=== PATIENT | female | born 1995 | race Caucasian/White ===

== ENCOUNTER 2016-07-16 15:17 | Emergency (ER) | payer OTHER ==
[2016-07-16 16:07] VITALS: BP 118/86
--- NOTE | 2016-07-16 16:22 | UC ---
Respiratory Complaint HPI - HPI Summary HPI Summary: 2 weeks of sinus pain and congestion, no fevers, some cough, slight relief with zyrtec/sidafed - History of Current Complaint Chief Complaint: UCRespiratory Stated Complaint: CHEST CONGESTION,COUGH Time Seen by Provider: 07/16/16 16:21 Hx Obtained From: Patient Hx Last Menstrual Period: 06/18/16 ?: No Onset/Duration: Gradual Onset, Lasting Weeks - 2, Still Present Timing: Constant Severity Initially: Moderate Severity Currently: Moderate Pain Intensity: 5 Pain Scale Used: 0-10 Numeric Character: Cough: Nonproductive Aggravating Factors: Nothing Alleviating Factors: Bronchodilator, OTC Meds Associated Signs And Symptoms: Positive: Wheezing, Edema, URI, Nasal Congestion , Sinus Discomfort - Allergies/Home Medications Allergies/Adverse Reactions: Allergies Allergy/AdvReac Type Severity Reaction Status Date / Time No Known Allergies Allergy Verified 07/16/16 16:07 Home Medications: Home Medications Norgestimate-Ethinyl Estradiol [Twt-Wy-Ftalpy 0.18/0.215/0.25 mg-25 Mcg] 1 tab PO 07/16/16 [History] PMH/Surg Hx/FS Hx/Imm Hx Previously Healthy: No Endocrine History Of: Denies: Diabetes, Thyroid Disease Cardiovascular History Of: Denies: Cardiac Disorders, Hypertension Respiratory History Of: Reports: Asthma - sports induced asthma Denies: COPD GI/ History Of: Denies: Ulcer - Surgical History Surgical History: None - Family History Known Family History: Positive: Cardiac Disease, Hypertension - Social History Occupation: Student Lives: With Family Alcohol Use: Occasionally Substance Use Type: None Smoking Status (MU): Never Smoked Tobacco Review of Systems Constitutional: Negative Skin: Negative Eyes: Negative ENT: Sore Throat, Ear Ache, Nasal Discharge Respiratory: Cough Cardiovascular: Negative Gastrointestinal: Negative Genitourinary: Negative Motor: Negative Neurovascular: Negative Musculoskeletal: Negative Neurological: Headache - maxillary sinus headache Psychological: Negative All Other Systems Reviewed And Are Negative: Yes Physical Exam Triage Information Reviewed: Yes Appearance: Well-Appearing, No Pain Distress, Well-Nourished Vital Signs: Initial Vital Signs Temp 98.1 F 07/16/16 16:02 Pulse 64 07/16/16 16:02 Resp 18 07/16/16 16:02 BP 118/86 07/16/16 16:02 Pulse Ox 99 07/16/16 16:02 Vital Signs Reviewed: Yes Eye Exam: Normal Eyes: Positive: Conjunctiva Clear ENT Exam: Normal ENT: Positive: Normal ENT inspection, Hearing grossly normal, Pharynx normal, Nasal congestion, Nasal drainage, TMs normal. Negative: Tonsillar swelling, Tonsillar exudate, Trismus, Muffled/hoarse voice Dental Exam: Normal Neck exam: Normal Neck: Positive: Supple, Nontender, No Lymphadenopathy Respiratory Exam: Normal Respiratory: Positive: Chest non-tender, No respiratory distress, No accessory muscle use, Wheezing Cardiovascular Exam: Normal Cardiovascular: Positive: RRR, No Murmur, Pulses Normal, Brisk Capillary Refill Musculoskeletal Exam: Normal Musculoskeletal: Positive: Strength Intact, ROM Intact, No Edema Neurological Exam: Normal Neurological: Positive: Alert, Muscle Tone Normal Psychological Exam: Normal Skin Exam: Normal UC Diagnostic Evaluation - Laboratory O2 Sat by Pulse Oximetry: 99 Respiratory Course/Dx - Course Course Of Treatment: Flonase, albuterol augmentin, increase fluids, mucinx d follow at [facility] - Differential Dx/Diagnosis Differential Diagnosis/HQI/PQRI: Asthma, Bronchitis, Laryngitis, Lower Resp Infection, Sinusitis Provider Diagnoses: Acute rhinosinusitis Discharge - Discharge Plan Condition: Stable Disposition: HOME Prescriptions: Albuterol HFA INHALER* [Ventolin HFA Inhaler*] 2 puff INH Q4H PRN #1 mdi PRN Reason: cough/wheeze/chest congestion Amoxicillin/Clavulanate TAB* [Augmentin TAB 875*] 875 mg PO BID #20 tab Fluticasone NASAL SPRAY 50MCG* [Flonase NASAL SPRAY 50MCG*] 2 spray BOTH NARES DAILY #1 btl Patient Education Materials: How to Use a Metered-Dose Inhaler (ED), How to Use Nasal [place] (ED), Sinusitis (ED), Bronchospasm (ED) Referrals: [facility] CESILIA Muller [Primary Care Provider] - If Needed
== END 2016-07-16 16:42 | disposition home or self-care (01) ==
LOC: UCEAST 15:17
DX: J01.90 Acute sinusitis, unspecified (principal); J45.990 Exercise induced bronchospasm
CPT/HCPCS: 99202; G0463

== ENCOUNTER 2016-12-06 16:51 | Emergency (ER) | payer OTHER ==
[2016-12-06 17:22] VITALS: BP 118/72
--- NOTE | 2016-12-06 18:23 | ED ---
Respiratory - HPI Summary HPI Summary: 21 y/o female presents to urgent care c/o sinus congestions, sore throat with difficulty swallowing and SINGH for the past 4 days. She feel SOB w/ mild wheezing and subjective fever at home. She has been taking DayQuil, sudafed, NyQuil, and Albuterol inhaler w/o any improvement of symptoms. Pt denies dizziness, chest pain, abdominal pain, N/V/D. - History of Current Complaint Chief Complaint: UCRespiratory Stated Complaint: URI Time Seen by Provider: 12/06/16 18:18 Hx Obtained From: Patient Onset/Duration: Gradual Onset, Lasting Days, Still Present Timing: Constant Initial Severity: Mild Current Severity: Moderate Pain Intensity: 6 Character: Cough (Nonproductive), Dyspnea on Exertion Aggravating Factor(s): URI Alleviating Factor(s): Nothing Associated Signs and Symptoms: Fever, Wheezing - mild at home, Nasal Congestion , Dyspnea - Risk Factors Status Asthmaticus Risk Factors: Negative Pulmonary Embolism Risk Factors: Negative Cardiac Risk Factors: Negative Pseudomonas Risk Factors: Negative Tuberculosis Risk Factors: Negative - Allergy/Home Medications Allergies/Adverse Reactions: Allergies Allergy/AdvReac Type Severity Reaction Status Date / Time No Known Allergies Allergy Verified 12/06/16 17:22 Home Medications: Home Medications [id number] [Vicks Dayquil/Nyquil Cold] 1 mis PO ONCE PRN 03/12 [History Confirmed 12/06/16] PMH/Surg Hx/FS Hx/Imm Hx Previously Healthy: Yes Endocrine/Hematology History: Denies: Hx Diabetes, Hx Thyroid Disease Cardiovascular History: Denies: Hx Hypertension Respiratory History: Reports: Hx Asthma - sports induced asthma Denies: Hx Chronic Obstructive Pulmonary Disease (COPD) GI History: Denies: Hx Ulcer Infectious Disease History: No Infectious Disease History: Denies: Hx Hepatitis, Hx Human Immunodeficiency Virus (HIV), Traveled Outside the [place] in Last 30 Days - Family History Known Family History: Positive: Cardiac Disease, Hypertension - Social History Occupation: Student Lives: Dormitory/Roommates Alcohol Use: Weekly Substance Use Type: Reports: None Smoking Status (MU): Never Smoked Tobacco Review of Systems Positive: Fever - subjective Eyes: Negative Positive: Sore Throat, Nasal Discharge Cardiovascular: Negative Positive: Shortness Of Breath, Cough Gastrointestinal: Negative Genitourinary: Negative Musculoskeletal: Negative Skin: Negative Neurological: Negative Psychological: Normal All Other Systems Reviewed And Are Negative: Yes Physical Exam Triage Information Reviewed: Yes Vital Signs On Initial Exam: Initial Vitals Temp Pulse Resp BP Pulse Ox 100.4 F 96 18 118/72 98 12/06/16 17:19 12/06/16 17:19 12/06/16 17:19 12/06/16 17:19 12/06/16 17:19 Vital Signs Reviewed: Yes Appearance: Positive: Well-Appearing, No Pain Distress, Well-Nourished Skin: Positive: Warm, Skin Color Reflects Adequate Perfusion, Dry Head/Face: Positive: Normal Head/Face Inspection Eyes: Positive: Normal, EOMI, JAMIE, Conjunctiva Clear ENT: Positive: Normal ENT inspection, Hearing grossly normal, Pharyngeal erythema - palate pethechias, Nasal congestion, Nasal drainage - yellowish, TMs normal Dental: Positive: Cervical Lymphadenopathy Neck: Positive: Supple, Nontender Respiratory/Lung Sounds: Positive: Clear to Auscultation, Breath Sounds Present Cardiovascular: Positive: Normal, RRR, Pulses are Symmetrical in both Upper and Lower Extremities, S1, S2 Abdomen Description: Positive: Nontender, No Organomegaly, Soft. Negative: CVA Tenderness (R), CVA Tenderness (L) Bowel Sounds: Positive: Present Musculoskeletal: Positive: Normal, Strength/ROM Intact Neurological: Positive: Normal, Sensory/Motor Intact, Alert, Oriented to Person Place, Time Psychiatric: Positive: Normal Diagnostics - Vital Signs Vital Signs Temp Pulse Resp BP Pulse Ox 12/06/16 17:19 100.4 F 96 18 118/72 98 - Laboratory Lab Statement: Any lab studies that have been ordered have been reviewed, and results considered in the medical decision making process. Disposition - Course Course Of Treatment: 21 y/o female presents to urgent care c/o sinus congestions , sore throat with difficulty swallowing and SINGH for the past 4 days. She feel SOB w/ mild wheezing and subjective fever at home. She has been taking DayQuil , sudafed, NyQuil, and Albuterol inhaler w/o any improvement of symptoms. Pt denies dizziness, chest pain, abdominal pain, N/V/D.HX obtained. Rapid strep ordered: postive, Influenza A&B ordered: neagtive. DX Strep pharyngitis. Pt Rx Amoxicillin PO and Ibuprofen PO to alleviate symptoms. Advises to increase fluid intake, eat well and rest. If symptoms do not improve or worsen please return to the urgent care or f/u with your PCP for further evaluation and treatment. Pt understood and agreed and left the clinic ambulating. - Differential Dx - Cardiopulmonary Differential Diagnoses - Cardiopulmonary: Asthma, Bronchitis, Influenza, Laryngitis, Sinusitis, Other - URI, strep pharyngitis, tonsillitis - Diagnoses Provider Diagnoses: Strep pharyngitis Discharge - Discharge Plan Condition: Stable Disposition: HOME Prescriptions: Amoxicillin PO (*) [Amoxicillin 875 MG (*)] 875 mg PO BID #20 tab Ibuprofen TAB* [Motrin TAB* 800 MG] 800 mg PO Q6H #20 tab Patient Education Materials: Strep Throat (ED) Forms: *School Release Referrals: [facility] [Primary Care Provider] - If Needed Additional Instructions: 1- Please take the full course of the antibiotic to avoid resistance. Encourage hand washing, increase fluid intake, rest , eat well. 2-Please take ibuprofen PO q6-8hrs prn as instructed after meals to alleviate pain and swelling. 3-If symptoms do not improve or worsen please return to the urgent care or f/u with your PCP for further evaluation and treatment.
== END 2016-12-06 19:15 | disposition home or self-care (01) ==
LOC: UCEAST 16:51
DX: J02.0 Streptococcal pharyngitis (principal)
CPT/HCPCS: 87502; 87651; 99212; G0463

== ENCOUNTER 2017-02-14 10:17 | Emergency (ER) | payer OTHER ==
[2017-02-14 10:38] VITALS: BP 103/75
--- NOTE | 2017-02-19 21:22 | UC ---
Wendy Berman Gabriel, scribed for Ira Cabrera MD on 02/14/17 at 1249 . Respiratory Complaint HPI - HPI Summary HPI Summary: This patient is a 21 year old F presenting to [facility] with a chief complaint of nasal congestion and a sinus SINGH for a week. Pt also reports wheezing, tightness , seems worse at night. Pt denies sore throat and fever. Pt states she hasnt been using inhaler lately. No rash. No n/v. Has pcp, but not here. - History of Current Complaint Chief Complaint: UCRespiratory Stated Complaint: CONGUESTED Time Seen by Provider: 02/14/17 12:39 Hx Obtained From: Patient Hx Last Menstrual Period: 02/02/2017 Onset/Duration: Lasting Weeks - 1, Still Present Timing: Constant Character: Cough: Productive Associated Signs And Symptoms: Positive: Wheezing. Negative: Fever - Allergies/Home Medications Allergies/Adverse Reactions: Allergies Allergy/AdvReac Type Severity Reaction Status Date / Time No Known Allergies Allergy Verified 12/06/16 17:22 PMH/Surg Hx/FS Hx/Imm Hx Previously Healthy: No Respiratory History: Bronchitis - Surgical History Surgical History: None - Family History Known Family History: Positive: Cardiac Disease, Hypertension - Social History Alcohol Use: Weekly Substance Use Type: None Smoking Status (MU): Never Smoked Tobacco - Immunization History Most Recent Influenza Vaccination: not UTD Review of Systems Constitutional: Negative Skin: Negative Eyes: Negative ENT: Other - see HPI Respiratory: Other - see HPI Cardiovascular: Negative Gastrointestinal: Negative Genitourinary: Negative Motor: Negative Neurovascular: Negative Musculoskeletal: Negative Neurological: Negative Psychological: Negative Is Patient Immunocompromised?: No All Other Systems Reviewed And Are Negative: Yes Physical Exam Triage Information Reviewed: Yes Appearance: Well-Nourished - NAD Vital Signs: Initial Vital Signs Temp 98.2 F 02/14/17 10:33 Pulse 77 02/14/17 10:33 Resp 18 02/14/17 10:33 BP 103/75 02/14/17 10:33 Pulse Ox 100 02/14/17 10:33 Vital Signs Reviewed: Yes Eye Exam: Normal ENT: Positive: Pharyngeal erythema - no sores Neck exam: Normal Respiratory Exam: Other Respiratory: Positive: Wheezing - bilat mild exp wheeze. bs equal. No tachypnea. No rtx. Cardiovascular Exam: Normal Cardiovascular: Positive: RRR, No Murmur, Other: - good general skin color, good capillary refill Abdominal Exam: Normal Abdomen Description: Positive: Nontender, No Organomegaly, Soft Bowel Sounds: Positive: Present Musculoskeletal Exam: Normal Musculoskeletal: Positive: Strength Intact Neurological Exam: Normal - nonfocal, grossly intact Psychological Exam: Normal - conversing easily and appropriately Skin Exam: Normal - no visible or reported rash UC Diagnostic Evaluation - Laboratory O2 Sat by Pulse Oximetry: 100 Respiratory Course/Dx - Course Course Of Treatment: No new problems in CCC. Questions as posed answered to the best of my ability. - Differential Dx/Diagnosis Provider Diagnoses: Acute bronchitis and rhinosinusitis Discharge - Discharge Plan Condition: Stable Disposition: HOME Prescriptions: Albuterol HFA INHALER* [Ventolin HFA Inhaler*] 1 - 2 puff INH Q4H PRN #1 mdi PRN Reason: Wheezing Azithromyxin LUIS ENRIQUE (NF) [Z-Luis Enrique (Zithromax) 250 mg tabs #6] 2 tab PO .TODAY, THEN 1 DAILY #6 tab Patient Education Materials: Acute Bronchitis (ED), Wheezing (ED) Referrals: No Primary Care Phys,NOPCP [Primary Care Provider] - Additional Instructions: Follow up with your primary care physician, per routine. Seek medical attention for worse or new problems in the meantime. The documentation as recorded by the Wendy epperson Gabriel accurately reflects the service I personally performed and the decisions made by me, Ira Cabrera MD.
== END 2017-02-14 13:05 | disposition home or self-care (01) ==
LOC: UCEAST 10:17
DX: J20.9 Acute bronchitis, unspecified (principal); J32.9 Chronic sinusitis, unspecified
CPT/HCPCS: 99212; G0463